=== PATIENT | male | born 1955 | race Caucasian/White ===

== ENCOUNTER 2020-08-25 13:48 | Inpatient (IN) | payer OTHER ==
[~2020-08-25] VITALS: Ht 167.6 cm; Wt 82.1 kg
--- NOTE | 2020-08-25 14:16 | NUR ---
PATIENT TRANSFERRED FROM [facility] BY YANETH WITH CHIEF C/O COIVD +. PER EMS PATIENT UNABLE TO KEEP O2 SATURATION ABOVE 84%. PATIENT PLACED ON 4 LPM NC EN ROUTE. NADN, PATIENT'S O2 SATURATION GOING BETWEEN 88%-90%, O2 INCREASED TO 5 LPM NC, OTHER VITAL SIGNS STABLE. GUARD AT BEDSIDE, CALL LIGHT WITHIN REACH.
[2020-08-25] MEDS ORDERED: CEFTRIAXONE PMX 1GM/50ML 50 ML ONE (14:47)
[2020-08-25] MEDS ORDERED: AZITHROMYCIN 500 MG in SODIUM CHLORIDE 0.9% 250 ML IVPB ONE (15:00)
[2020-08-25] MEDS ORDERED: CEFTRIAXONE PMX 1GM/50ML 50 ML IVPB ONE (15:00)
[2020-08-25] MEDS ORDERED: SODIUM CHLORIDE FLUSH 10ML SYR IVF ONE (15:00)
[2020-08-25 15:38] LABS: BASOPHILS % (AUTO) 0 % (0-1); EOSINOPHILS % (AUTO) 0 % (1-7); LYMPHOCYTES % (AUTO) 5 % (22-44); MEAN CORPUSCULAR HGB CONC 34.5 g/dL (33.2-36.2); MEAN PLATELET VOLUME 9.7 fL (7.4-10.4); MONOCYTES % (AUTO) 6 % (2-9); NEUTROPHILS % (AUTO) 89 % (42-75); PLATELET COUNT 277 x10^3/uL (130-400); RED BLOOD COUNT 4.66 x10^6/uL (4.38-5.82); RED CELL DISTRIBUTION WIDTH 12.9 % (9.4-14.8)
[2020-08-25 15:40] LABS: MD NO
[2020-08-25 15:49] LABS: ALANINE AMINOTRANSFERASE 89 U/L (12-78); ALBUMIN 2.9 g/dL (3.4-5.0); ANION GAP 9 mmol/L (5-15); CALCIUM 9.5 mg/dL (8.5-10.1); CHLORIDE 100 mmol/L (98-107)
[2020-08-25 15:56] LABS: D-DIMER (DIC) 3.12 ug/mlFEU (0.00-0.52); PROTIME 10.6 Seconds (9.6-11.5)
[2020-08-25 15:58] LABS: ALKALINE PHOSPHATASE 68 U/L (45-117); BILIRUBIN,TOTAL 0.8 mg/dL (0.2-1.0); C-REACTIVE PROTEIN, QUANT 2.67 mg/dL (0.02-0.49); CREATININE 1.48 mg/dL (0.7-1.3); TOTAL PROTEIN 8.1 g/dL (6.4-8.2)
[2020-08-25] MEDS ORDERED: SODIUM CHLORIDE FLUSH 10ML SYR IVF PRN (16:30)
--- NOTE | 2020-08-25 16:37 | NUR ---
DINNER TRAY ORDERED.
--- NOTE | 2020-08-25 16:51 | NUR ---
SM AT BEDSIDE FOR ADMISSION EVALUATION.
--- NOTE | 2020-08-25 16:52 | NUR ---
UNABLE TO GET PATIENT ABOVE 88% ON 6 LPM VIA NC. SWITCHED PATIENT TO SIMPLE O2 MASK 6 LPM, PATIENT NOW UP TO 91%.
--- NOTE | 2020-08-25 16:55 | NUR ---
PATIENT TO CT SCAN.
--- NOTE | 2020-08-25 17:10 | NUR ---
Medications requested from pharmacy.
[2020-08-25] MEDS ORDERED: OMNIPAQUE 350 MG/ML, 100ML BOTTLE ONE (17:12)
--- NOTE | 2020-08-25 17:15 | NUR ---
PATIENT BACK FROM IMAGING, DINNER TRAY PROVIDED. YG, GUARD AT BEDSIDE, CALL LIGHT WITHIN REACH.
[2020-08-25] MEDS ORDERED: ASCORBIC ACID 500 MG TABLET ONE (17:18)
--- NOTE | 2020-08-25 17:27 | NUR ---
PATIENT AMBULATED TO BATHROOM WITH STEADY GAIT, GUARD AT SIDE.
[2020-08-25] MEDS ORDERED: BUTALB/APAP/CAFFEINE 50MG/325MG/40MG PO PRN (17:30)
[2020-08-25] MEDS ORDERED: ENALAPRILAT 1.25 MG/ML, 2ML IVPush PRN (17:30)
[2020-08-25] MEDS ORDERED: LABETALOL 5MG/ML, 20ML IVPush PRN (17:30)
[2020-08-25] MEDS ORDERED: BACLOFEN 10 MG TABLET PO PRN (17:30)
[2020-08-25] MEDS ORDERED: IBUPROFEN 600 MG TABLET PO PRN (17:30)
[2020-08-25] MEDS ORDERED: ONDANSETRON ODT 4 MG PO PRN (17:30)
[2020-08-25] MEDS ORDERED: ONDANSETRON 2MG/ML, 2ML IVPush PRN (17:30)
[2020-08-25] MEDS: ASCORBIC ACID 500 MG TABLET PO SCH (18:13)
--- NOTE | 2020-08-25 18:49 | NUR ---
PATIENT DROPPING TO 87% TO 88% ON 6 LPM OXYMASK, BREAK RN PLACED PATIENT ON NON-REBREATHER, O2 SATURATION UP TO 89%-90%, NADN, GUARD AT BEDSIDE, CALL LIGHT WITHIN REACH.
[2020-08-25] MEDS: ENOXAPARIN 30 MG/0.3 ML SQ SCH (19:12)
[2020-08-25] MEDS: INSULIN LISPRO 100 UNITS/ML, PEN SQ-INSULIN SCH ×2 (19:12→21:00)
--- NOTE | 2020-08-25 19:53 | NUR ---
PATIENT SITTING IN GURNEY WATCHING TV, NADN, VSS, O2 IS 92% ON 10 LITERS NON-REBREATHER, GUARD AT BEDSIDE, CALL LIGHT WITHIN REACH.
--- NOTE | 2020-08-25 21:34 | NUR ---
REPORT CALLED TO [facility] ON [facility] TELEMETRY FLOOR FOR TRANSFER OF PATIENT CARE.
--- NOTE | 2020-08-25 21:55 | NUR ---
PATIENT TRANSFERRED TO [facility] TELEMETRY FLOOR VIA GURNEY WITH INJECTION MOLDER AND GUARD AT BEDSIDE. ALL PATIENT BELONGINGS GATHERED AND TAKEN TO FLOOR WITH PATIENT.
[2020-08-25 22:13] VITALS: BP 134/71
[2020-08-25] MEDS: MELATONIN 5 MG TABLET PO SCH (22:41)
[2020-08-26 02:16] VITALS: BP 115/76
[2020-08-26 04:05] LABS: ALANINE AMINOTRANSFERASE 84 U/L (12-78); ALBUMIN 2.6 g/dL (3.4-5.0); ANION GAP 8 mmol/L (5-15); CALCIUM 9.2 mg/dL (8.5-10.1); CHLORIDE 109 mmol/L (98-107)
[2020-08-26 04:08] LABS: ALKALINE PHOSPHATASE 62 U/L (45-117); BILIRUBIN,TOTAL 0.6 mg/dL (0.2-1.0); CREATININE 1.19 mg/dL (0.7-1.3); TOTAL PROTEIN 7.3 g/dL (6.4-8.2)
[2020-08-26 04:20] LABS: BASOPHILS % (AUTO) 0 % (0-1); EOSINOPHILS % (AUTO) 0 % (1-7); LYMPHOCYTES % (AUTO) 7 % (22-44); MEAN CORPUSCULAR HEMOGLOBIN 33.2 pg (27.5-34.5); MEAN CORPUSCULAR HGB CONC 34.9 g/dL (33.2-36.2); MEAN PLATELET VOLUME 9.5 fL (7.4-10.4); MONOCYTES % (AUTO) 4 % (2-9); NEUTROPHILS % (AUTO) 88 % (42-75); PLATELET COUNT 268 x10^3/uL (130-400); RED BLOOD COUNT 4.39 x10^6/uL (4.38-5.82); RED CELL DISTRIBUTION WIDTH 13.1 % (9.4-14.8)
[2020-08-26 04:23] LABS: MD NO
[2020-08-26] MEDS: ENOXAPARIN 30 MG/0.3 ML SQ SCH (08:26)
[2020-08-26] MEDS: INSULIN LISPRO 100 UNITS/ML, PEN SQ-INSULIN SCH ×4 (08:39→20:31)
[2020-08-26] MEDS: MULTIVITS,STRESS FORMULA 1 TABLET PO SCH (09:00)
[2020-08-26] MEDS ORDERED: DEXAMETHASONE 4 MG TABLET PO SCH (09:00)
[2020-08-26] MEDS: ASCORBIC ACID 500 MG TABLET PO SCH ×2 (10:23→17:03)
[2020-08-26] MEDS: SENNA/DOCUSATE TABLET PO SCH (10:23)
[2020-08-26] MEDS: ZINC SULFATE 220 MG CAPSULE PO SCH (10:24)
[2020-08-26] MEDS: CHOLECALCIFEROL 5,000u TAB PO SCH (10:24)
[2020-08-26] MEDS: FLUTICASONE/VILANTEROL 100-25MCG/INH INH SCH (12:24)
[2020-08-26] MEDS ORDERED: PHARMACY INSTRUCTION MC PRN (14:00)
[2020-08-26] MEDS ORDERED: REMDESIVIR 200 MG in SODIUM CHLORIDE 0.9% 250 ML IVPB ONE (15:00)
[2020-08-26] MEDS: THIAMINE 100 MG in SODIUM CHLORIDE 0.9% 50 ML IV SCH (15:02)
[2020-08-26] MEDS: AZITHROMYCIN 500 MG in SODIUM CHLORIDE 0.9% 250 ML IV SCH (18:13)
[2020-08-26] MEDS: ENOXAPARIN 80 MG/0.8 ML SQ SCH (20:23)
[2020-08-26] MEDS: MELATONIN 5 MG TABLET PO SCH (20:31)
[2020-08-27 04:00] VITALS: BP 110/78
[2020-08-27 05:00] LABS: MEAN CORPUSCULAR HEMOGLOBIN 33.1 pg (27.5-34.5); MEAN CORPUSCULAR HGB CONC 34.4 g/dL (33.2-36.2); MEAN PLATELET VOLUME 9.7 fL (7.4-10.4); PLATELET COUNT 264 x10^3/uL (130-400); RED BLOOD COUNT 4.36 x10^6/uL (4.38-5.82); RED CELL DISTRIBUTION WIDTH 13.4 % (9.4-14.8)
[2020-08-27 05:05] LABS: ALANINE AMINOTRANSFERASE 80 U/L (12-78); ALBUMIN 2.7 g/dL (3.4-5.0); ANION GAP 6 mmol/L (5-15); CALCIUM 9.1 mg/dL (8.5-10.1); CHLORIDE 109 mmol/L (98-107)
[2020-08-27 05:07] LABS: ALKALINE PHOSPHATASE 63 U/L (45-117); BILIRUBIN,TOTAL 0.8 mg/dL (0.2-1.0); TOTAL PROTEIN 7.4 g/dL (6.4-8.2)
[2020-08-27 06:39] LABS: MD YES
[2020-08-27 06:52] LABS: BAND#(MANUAL) 0.32 x10^3/uL; BANDS%(MANUAL) 3 % (0-7); LYMPH#(MANUAL) 0.42 x10^3/uL (1-3.4); LYMPHS% (MANUAL) 4 % (22-44); METAMYELOCYTES# (MANUAL) 0.32 x10^3/uL (0-0); METAMYELOCYTES% (MANUAL) 3 % (0-1); MONOS#(MANUAL) 0.32 x10^3/uL (0.3-2.7); MONOS% (MANUAL) 3 % (2-9); SEG#(MANUAL) 9.22 x10^3/uL (1.8-6.8); SEGS% (MANUAL) 87 % (42-75)
[2020-08-27 06:53] LABS: <PLATELET ESTIMATE> ADEQUATE; <PLT MORPHOLOGY> NORMAL PLT MORPH; <RBC MORPHOLOGY> NORMAL
[2020-08-27] MEDS: INSULIN LISPRO 100 UNITS/ML, PEN SQ-INSULIN SCH ×4 (07:00→19:23)
[2020-08-27] MEDS: CHOLECALCIFEROL 5,000u TAB PO SCH (09:00)
[2020-08-27] MEDS: MULTIVITS,STRESS FORMULA 1 TABLET PO SCH (09:00)
[2020-08-27] MEDS: ZINC SULFATE 220 MG CAPSULE PO SCH (09:00)
[2020-08-27] MEDS ORDERED: DEXAMETHASONE 4 MG/ML, 1ML IVPush ONE (09:00)
[2020-08-27] MEDS: DEXAMETHASONE 4 MG/ML, 1ML IVPush SCH (09:00)
[2020-08-27] MEDS: ASCORBIC ACID 500 MG TABLET PO SCH ×2 (09:01→17:20)
[2020-08-27] MEDS: ENOXAPARIN 80 MG/0.8 ML SQ SCH ×2 (09:01→19:22)
[2020-08-27] MEDS: SENNA/DOCUSATE TABLET PO SCH (09:01)
[2020-08-27] MEDS: FLUTICASONE/VILANTEROL 100-25MCG/INH INH SCH (09:02)
[2020-08-27] MEDS ORDERED: FUROSEMIDE 40 MG/4 ML IV ONE (10:00)
[2020-08-27] MEDS: THIAMINE 100 MG in SODIUM CHLORIDE 0.9% 50 ML IV SCH (14:28)
[2020-08-27] MEDS: REMDESIVIR 100 MG in SODIUM CHLORIDE 0.9% 250 ML IVPB SCH (15:37)
[2020-08-27] MEDS: AZITHROMYCIN 500 MG in SODIUM CHLORIDE 0.9% 250 ML IV SCH (17:21)
[2020-08-27] MEDS: MELATONIN 5 MG TABLET PO SCH (19:22)
[2020-08-27 19:26] VITALS: BP 114/74
[2020-08-28 02:00] VITALS: BP 113/77
[2020-08-28 06:43] LABS: BASOPHILS % (AUTO) 1 % (0-1); EOSINOPHILS % (AUTO) 1 % (1-7); LYMPHOCYTES % (AUTO) 6 % (22-44); MEAN CORPUSCULAR HGB CONC 34.2 g/dL (33.2-36.2); MEAN PLATELET VOLUME 9.2 fL (7.4-10.4); MONOCYTES % (AUTO) 4 % (2-9); NEUTROPHILS % (AUTO) 89 % (42-75); PLATELET COUNT 276 x10^3/uL (130-400); RED BLOOD COUNT 4.09 x10^6/uL (4.38-5.82); RED CELL DISTRIBUTION WIDTH 13.2 % (9.4-14.8)
[2020-08-28 06:55] LABS: ANION GAP 9 mmol/L (5-15); CHLORIDE 110 mmol/L (98-107)
[2020-08-28 06:57] LABS: CREATININE 1.12 mg/dL (0.7-1.3)
[2020-08-28 07:01] VITALS: BP 116/76
[2020-08-28 07:17] LABS: D-DIMER 2.16 ug/mlFEU (0.00-0.52)
[2020-08-28] MEDS: ENOXAPARIN 80 MG/0.8 ML SQ SCH ×2 (07:54→20:37)
[2020-08-28] MEDS: ASCORBIC ACID 500 MG TABLET PO SCH ×2 (07:54→16:43)
[2020-08-28] MEDS: INSULIN LISPRO 100 UNITS/ML, PEN SQ-INSULIN SCH ×4 (07:55→20:27)
[2020-08-28 08:14] LABS: MD SCAN
[2020-08-28] MEDS: ZINC SULFATE 220 MG CAPSULE PO SCH (09:26)
[2020-08-28] MEDS: MULTIVITS,STRESS FORMULA 1 TABLET PO SCH (09:26)
[2020-08-28] MEDS: SENNA/DOCUSATE TABLET PO SCH (09:26)
[2020-08-28] MEDS: DEXAMETHASONE 4 MG/ML, 1ML IVPush SCH (09:26)
[2020-08-28] MEDS: CHOLECALCIFEROL 5,000u TAB PO SCH (09:26)
[2020-08-28] MEDS: FLUTICASONE/VILANTEROL 100-25MCG/INH INH SCH (09:29)
[2020-08-28 13:52] VITALS: BP 111/75
[2020-08-28] MEDS: THIAMINE 100 MG in SODIUM CHLORIDE 0.9% 50 ML IV SCH (15:54)
[2020-08-28] MEDS: REMDESIVIR 100 MG in SODIUM CHLORIDE 0.9% 250 ML IVPB SCH (16:43)
[2020-08-28] MEDS: AZITHROMYCIN 500 MG in SODIUM CHLORIDE 0.9% 250 ML IV SCH ×2 (18:38→19:08)
[2020-08-28 20:00] VITALS: BP 104/65
[2020-08-28] MEDS: MELATONIN 5 MG TABLET PO SCH (20:27)
[2020-08-29 00:55] VITALS: BP 135/77
[2020-08-29 06:04] LABS: BASOPHILS % (AUTO) 0 % (0-1); EOSINOPHILS % (AUTO) 1 % (1-7); LYMPHOCYTES % (AUTO) 6 % (22-44); MEAN CORPUSCULAR HEMOGLOBIN 33.1 pg (27.5-34.5); MEAN PLATELET VOLUME 9.4 fL (7.4-10.4); MONOCYTES % (AUTO) 3 % (2-9); NEUTROPHILS % (AUTO) 90 % (42-75); PLATELET COUNT 247 x10^3/uL (130-400); RED BLOOD COUNT 4.05 x10^6/uL (4.38-5.82); RED CELL DISTRIBUTION WIDTH 13.1 % (9.4-14.8)
[2020-08-29 06:12] LABS: ALANINE AMINOTRANSFERASE 72 U/L (12-78); ALBUMIN 2.5 g/dL (3.4-5.0); ANION GAP 4 mmol/L (5-15); CALCIUM 8.3 mg/dL (8.5-10.1); CHLORIDE 112 mmol/L (98-107)
[2020-08-29 06:15] LABS: ALKALINE PHOSPHATASE 74 U/L (45-117); BILIRUBIN,TOTAL 0.8 mg/dL (0.2-1.0); TOTAL PROTEIN 6.7 g/dL (6.4-8.2)
[2020-08-29 06:16] LABS: D-DIMER 1.85 ug/mlFEU (0.00-0.52); INTERNATIONAL NORMALIZED RATIO 1.14 (0.93-1.1); PROTHROMBIN TIME 12.1 Seconds (9.6-11.5)
[2020-08-29 06:55] VITALS: BP 103/70
[2020-08-29] MEDS: INSULIN LISPRO 100 UNITS/ML, PEN SQ-INSULIN SCH ×4 (07:00→20:12)
[2020-08-29] MEDS: ENOXAPARIN 80 MG/0.8 ML SQ SCH ×2 (08:00→19:56)
[2020-08-29 08:18] LABS: MD SCAN
[2020-08-29] MEDS: DEXAMETHASONE 4 MG/ML, 1ML IVPush SCH (09:33)
[2020-08-29] MEDS: MULTIVITS,STRESS FORMULA 1 TABLET PO SCH (09:33)
[2020-08-29] MEDS: ZINC SULFATE 220 MG CAPSULE PO SCH (09:33)
[2020-08-29] MEDS: ASCORBIC ACID 500 MG TABLET PO SCH ×2 (09:33→17:25)
[2020-08-29] MEDS: CHOLECALCIFEROL 5,000u TAB PO SCH (09:33)
[2020-08-29] MEDS: SENNA/DOCUSATE TABLET PO SCH (09:33)
[2020-08-29] MEDS: FLUTICASONE/VILANTEROL 100-25MCG/INH INH SCH (09:34)
[2020-08-29] MEDS: THIAMINE 100 MG in SODIUM CHLORIDE 0.9% 50 ML IV SCH (13:04)
[2020-08-29 13:55] VITALS: BP 106/68
[2020-08-29] MEDS: REMDESIVIR 100 MG in SODIUM CHLORIDE 0.9% 250 ML IVPB SCH (15:21)
[2020-08-29] MEDS: AZITHROMYCIN 500 MG in SODIUM CHLORIDE 0.9% 250 ML IV SCH (17:25)
[2020-08-29 18:35] VITALS: BP 132/79
[2020-08-29] MEDS: MELATONIN 5 MG TABLET PO SCH (19:56)
[2020-08-30 01:00] VITALS: BP 104/69
[2020-08-30 01:30] VITALS: BP 112/69
[2020-08-30 05:39] LABS: CALCIUM 8.4 mg/dL (8.5-10.1); CHLORIDE 112 mmol/L (98-107)
[2020-08-30 05:45] LABS: ALANINE AMINOTRANSFERASE 67 U/L (12-78); ALBUMIN 2.2 g/dL (3.4-5.0); ALKALINE PHOSPHATASE 82 U/L (45-117); ANION GAP 6 mmol/L (5-15); BILIRUBIN,TOTAL 0.7 mg/dL (0.2-1.0); CREATININE 0.94 mg/dL (0.7-1.3); TOTAL PROTEIN 6.4 g/dL (6.4-8.2)
[2020-08-30 07:14] VITALS: BP 143/93
[2020-08-30] MEDS: INSULIN LISPRO 100 UNITS/ML, PEN SQ-INSULIN SCH ×4 (08:10→20:18)
[2020-08-30] MEDS: ZINC SULFATE 220 MG CAPSULE PO SCH (09:18)
[2020-08-30] MEDS: MULTIVITS,STRESS FORMULA 1 TABLET PO SCH (09:18)
[2020-08-30] MEDS: CHOLECALCIFEROL 5,000u TAB PO SCH (09:18)
[2020-08-30] MEDS: DEXAMETHASONE 4 MG/ML, 1ML IVPush SCH (09:19)
[2020-08-30] MEDS: ENOXAPARIN 80 MG/0.8 ML SQ SCH (09:19)
[2020-08-30] MEDS: SENNA/DOCUSATE TABLET PO SCH (09:20)
[2020-08-30] MEDS: FLUTICASONE/VILANTEROL 100-25MCG/INH INH SCH (09:20)
[2020-08-30] MEDS: ASCORBIC ACID 500 MG TABLET PO SCH ×2 (11:49→17:06)
[2020-08-30 13:17] VITALS: BP 114/71
[2020-08-30] MEDS: THIAMINE 100 MG in SODIUM CHLORIDE 0.9% 50 ML IV SCH (13:49)
[2020-08-30] MEDS: REMDESIVIR 100 MG in SODIUM CHLORIDE 0.9% 250 ML IVPB SCH (15:06)
[2020-08-30 18:48] VITALS: BP 120/80
[2020-08-30] MEDS: MELATONIN 5 MG TABLET PO SCH (20:16)
[2020-08-30] MEDS: GUAIFENESIN ER 600 MG TABLET PO SCH (20:16)
[2020-08-31 01:33] VITALS: BP 112/70
[2020-08-31 06:33] VITALS: BP 124/84
[2020-08-31] MEDS: INSULIN LISPRO 100 UNITS/ML, PEN SQ-INSULIN SCH ×3 (07:00→22:40)
[2020-08-31] MEDS: CHOLECALCIFEROL 5,000u TAB PO SCH (07:49)
[2020-08-31] MEDS: MULTIVITS,STRESS FORMULA 1 TABLET PO SCH (07:49)
[2020-08-31] MEDS: ASCORBIC ACID 500 MG TABLET PO SCH ×2 (07:49→18:20)
[2020-08-31] MEDS: ZINC SULFATE 220 MG CAPSULE PO SCH (07:49)
[2020-08-31] MEDS: ENOXAPARIN 60 MG/0.6 ML SQ SCH (07:49)
[2020-08-31] MEDS: GUAIFENESIN ER 600 MG TABLET PO SCH ×2 (07:49→22:41)
[2020-08-31] MEDS: FLUTICASONE/VILANTEROL 100-25MCG/INH INH SCH (07:50)
[2020-08-31] MEDS: DEXAMETHASONE 4 MG/ML, 1ML IVPush SCH (07:50)
[2020-08-31] MEDS: SENNA/DOCUSATE TABLET PO SCH (07:57)
[2020-08-31 14:26] VITALS: BP 115/76
[2020-08-31] MEDS: THIAMINE 100 MG in SODIUM CHLORIDE 0.9% 50 ML IV SCH (14:38)
[2020-08-31 18:50] VITALS: BP 125/75
[2020-08-31] MEDS: MELATONIN 5 MG TABLET PO SCH (22:41)
[2020-09-01 00:54] VITALS: BP 134/85
[2020-09-01 01:22] VITALS: BP 112/78
[2020-09-01 07:02] VITALS: BP 109/73
[2020-09-01] MEDS ORDERED: INSULIN GLARGINE 100 UNITS/ML, PEN SQ-INSULIN SCH ×2 (09:00)
[2020-09-01] MEDS: MULTIVITS,STRESS FORMULA 1 TABLET PO SCH (09:46)
[2020-09-01] MEDS: ENOXAPARIN 60 MG/0.6 ML SQ SCH (09:46)
[2020-09-01] MEDS: INSULIN LISPRO 100 UNITS/ML, PEN SQ-INSULIN SCH ×4 (09:46→20:34)
[2020-09-01] MEDS: CHOLECALCIFEROL 5,000u TAB PO SCH (09:47)
[2020-09-01] MEDS: GUAIFENESIN ER 600 MG TABLET PO SCH ×2 (09:47→19:45)
[2020-09-01] MEDS: ASCORBIC ACID 500 MG TABLET PO SCH ×2 (09:47→17:00)
[2020-09-01] MEDS: ACETAMINOPHEN 325 MG TABLET PO PRN (09:47)
[2020-09-01] MEDS: DEXAMETHASONE 4 MG/ML, 1ML IVPush SCH (09:48)
[2020-09-01] MEDS: FLUTICASONE/VILANTEROL 100-25MCG/INH INH SCH (09:48)
[2020-09-01] MEDS: ZINC SULFATE 220 MG CAPSULE PO SCH (09:48)
[2020-09-01] MEDS: SENNA/DOCUSATE TABLET PO SCH (10:00)
[2020-09-01] MEDS ORDERED: HYDROmorphone 1 MG/ML, 1ML INJ IV PRN (12:30)
[2020-09-01] MEDS ORDERED: HEPARIN 5,000 UNITS/ML, 1ML IV PRN (13:00)
[2020-09-01] MEDS ORDERED: INSTRUCTION SEE COMMENTS XX ONE (13:00)
[2020-09-01] MEDS ORDERED: HEPARIN 25,000 UNITS/250ML PMX 250 ML IV PRN (13:00)
[2020-09-01] MEDS ORDERED: THROMBIN 20,000 UNIT VIAL TP ONE (13:49)
[2020-09-01] MEDS ORDERED: PROTAMINE SULFATE 10 MG/ML, 5ML ONE (13:49)
[2020-09-01] MEDS ORDERED: BUPIVACAINE/PF 0.5% ONE (13:49)
[2020-09-01] MEDS ORDERED: HEPARIN 1,000 UNITS/ML, 10ML ONE (13:49)
[2020-09-01] MEDS ORDERED: BACITRACIN 50,000 UNIT ONE (13:49)
[2020-09-01] MEDS ORDERED: EPINEPHRINE 1 MG/ML, 1ML ONE (13:49)
[2020-09-01] MEDS ORDERED: PAPAVERINE 30 MG/ML, 2ML ONE (13:49)
[2020-09-01] MEDS ORDERED: FENTANYL PF 250 MCG/5ML ONE (14:00)
[2020-09-01] MEDS ORDERED: ROCURONIUM 10 MG/ML,10ML ONE (14:38)
[2020-09-01] MEDS ORDERED: DEXAMETHASONE 4 MG/ML, 1ML ONE (14:38)
[2020-09-01] MEDS ORDERED: CEFAZOLIN 1,000 MG ONE (14:38)
[2020-09-01] MEDS ORDERED: PROPOFOL 10 MG/ML, 20ML ONE (14:38)
[2020-09-01] MEDS ORDERED: SUCCINYLCHOLINE 20 MG/ML, 10ML ONE (14:38)
[2020-09-01] MEDS ORDERED: BUPIVACAINE/PF 0.5% INFIL ONE (15:18)
[2020-09-01] MEDS ORDERED: HEPARIN 1,000 UNITS/ML, 10ML IV ONE (15:19)
[2020-09-01] MEDS ORDERED: PROPOFOL 100 ML IV ONE (16:37)
[2020-09-01] MEDS ORDERED: DEXTROSE 4 GM TAB.CHEW PO PRN (17:30)
[2020-09-01] MEDS ORDERED: LIDOCAINE-MPF 1%, 2ML ENDO PRN (17:30)
[2020-09-01] MEDS ORDERED: GLUCAGON 1 MG IM PRN (17:30)
[2020-09-01] MEDS ORDERED: ONDANSETRON 2MG/ML, 2ML IV PRN (17:30)
[2020-09-01] MEDS ORDERED: FENTANYL PF 1,000 MCG in SODIUM CHLORIDE 0.9% 80 ML IV PRN (17:30)
[2020-09-01] MEDS ORDERED: DEXTROSE 50%, 50ML SYRINGE IVPush PRN (17:30)
[2020-09-01] MEDS ORDERED: LACTULOSE 20 GM/30 ML UDC NG PRN (17:30)
[2020-09-01] MEDS ORDERED: SENNA/DOCUSATE TABLET NG PRN (17:30)
[2020-09-01] MEDS ORDERED: BISACODYL 10 MG SUPP PR PRN (17:30)
[2020-09-01] MEDS ORDERED: PHARMACY MAY ADJ FOR RENAL FX MC SCH (17:30)
[2020-09-01] MEDS: THIAMINE 100 MG in SODIUM CHLORIDE 0.9% 50 ML IV SCH (18:01)
[2020-09-01] MEDS: SODIUM CHLORIDE FLUSH 10ML SYR IVF SCH (21:02)
[2020-09-01] MEDS: PROPOFOL 100 ML IV PRN (21:02)
[2020-09-01] MEDS: MELATONIN 5 MG TABLET PO SCH (21:52)
[2020-09-02 03:10] LABS: BASOPHILS % (AUTO) 0 % (0-1); EOSINOPHILS % (AUTO) 0 % (1-7); LYMPHOCYTES % (AUTO) 5 % (22-44); MEAN CORPUSCULAR HGB CONC 34.3 g/dL (33.2-36.2); MEAN PLATELET VOLUME 9.5 fL (7.4-10.4); MONOCYTES % (AUTO) 3 % (2-9); NEUTROPHILS % (AUTO) 92 % (42-75); PLATELET COUNT 182 x10^3/uL (130-400); RED BLOOD COUNT 3.44 x10^6/uL (4.38-5.82); RED CELL DISTRIBUTION WIDTH 13.3 % (9.4-14.8)
[2020-09-02 03:11] LABS: ANION GAP 5 mmol/L (5-15); CALCIUM 8.3 mg/dL (8.5-10.1); CHLORIDE 113 mmol/L (98-107); CREATININE 0.98 mg/dL (0.7-1.3)
[2020-09-02] MEDS: PROPOFOL 100 ML IV PRN ×4 (03:35→20:55)
[2020-09-02] MEDS: INSULIN LISPRO 100 UNITS/ML, PEN SQ-INSULIN SCH ×4 (03:36→20:36)
[2020-09-02 03:37] LABS: MD SCAN
[2020-09-02 07:54] LABS: BILIRUBIN, DIRECT 0.1 mg/dL (0.1-0.2)
[2020-09-02 07:55] LABS: BILIRUBIN,INDIRECT 0.2 mg/dL (0.0-2.0); BILIRUBIN,TOTAL 0.3 mg/dL (0.2-1.0)
[2020-09-02] MEDS: FLUTICASONE/VILANTEROL 100-25MCG/INH INH SCH (09:00)
[2020-09-02] MEDS: INSULIN GLARGINE 100 UNITS/ML, PEN SQ-INSULIN SCH ×2 (09:00→20:36)
[2020-09-02] MEDS ORDERED: HEPARIN 5,000 UNITS/ML, 1ML IV PRN (09:38)
[2020-09-02] MEDS: GUAIFENESIN ER 600 MG TABLET PO SCH ×2 (09:50→20:37)
[2020-09-02] MEDS: SENNA/DOCUSATE TABLET PO SCH (09:50)
[2020-09-02] MEDS: CHOLECALCIFEROL 5,000u TAB PO SCH (09:50)
[2020-09-02] MEDS: ASCORBIC ACID 500 MG TABLET PO SCH ×2 (09:50→15:11)
[2020-09-02] MEDS: ZINC SULFATE 220 MG CAPSULE PO SCH (09:50)
[2020-09-02] MEDS: MULTIVITS,STRESS FORMULA 1 TABLET PO SCH (09:50)
[2020-09-02] MEDS: DEXAMETHASONE 4 MG/ML, 1ML IVPush SCH (09:51)
[2020-09-02] MEDS: SODIUM CHLORIDE FLUSH 10ML SYR IVF SCH ×2 (09:52→20:34)
[2020-09-02] MEDS ORDERED: HEPARIN 25,000 UNITS/250ML PMX 250 ML IV PRN (10:00)
[2020-09-02] MEDS ORDERED: PROPOFOL 50 ML ONE (10:42)
[2020-09-02] MEDS: RIVAROXABAN 15 MG TABLET PO SCH (15:11)
[2020-09-02] MEDS: MELATONIN 5 MG TABLET PO SCH (20:37)
[2020-09-03] MEDS: INSULIN LISPRO 100 UNITS/ML, PEN SQ-INSULIN SCH ×4 (03:34→21:45)
[2020-09-03] MEDS: PROPOFOL 100 ML IV PRN ×3 (04:54→21:44)
[2020-09-03 05:29] LABS: ANION GAP 7 mmol/L (5-15); BASOPHILS % (AUTO) 0 % (0-1); CALCIUM 8.8 mg/dL (8.5-10.1); CHLORIDE 113 mmol/L (98-107); CREATININE 1.04 mg/dL (0.7-1.3); EOSINOPHILS % (AUTO) 0 % (1-7); LYMPHOCYTES % (AUTO) 6 % (22-44); MEAN CORPUSCULAR HEMOGLOBIN 32.7 pg (27.5-34.5); MEAN CORPUSCULAR HGB CONC 33.6 g/dL (33.2-36.2); MEAN PLATELET VOLUME 9.7 fL (7.4-10.4); MONOCYTES % (AUTO) 3 % (2-9); NEUTROPHILS % (AUTO) 91 % (42-75); PLATELET COUNT 169 x10^3/uL (130-400); RED BLOOD COUNT 3.56 x10^6/uL (4.38-5.82); RED CELL DISTRIBUTION WIDTH 13.5 % (9.4-14.8)
[2020-09-03 05:34] LABS: MD NO
[2020-09-03] MEDS: FLUTICASONE/VILANTEROL 100-25MCG/INH INH SCH (09:00)
[2020-09-03] MEDS: SODIUM CHLORIDE FLUSH 10ML SYR IVF SCH ×2 (09:02→21:43)
[2020-09-03] MEDS: GUAIFENESIN ER 600 MG TABLET PO SCH ×2 (09:03→21:43)
[2020-09-03] MEDS: CHOLECALCIFEROL 5,000u TAB PO SCH (09:03)
[2020-09-03] MEDS: DEXAMETHASONE 4 MG/ML, 1ML IVPush SCH (09:03)
[2020-09-03] MEDS: RIVAROXABAN 15 MG TABLET PO SCH ×2 (09:03→15:34)
[2020-09-03] MEDS: ASCORBIC ACID 500 MG TABLET PO SCH ×2 (09:03→15:34)
[2020-09-03] MEDS: SENNA/DOCUSATE TABLET PO SCH (09:03)
[2020-09-03] MEDS: ZINC SULFATE 220 MG CAPSULE PO SCH (09:03)
[2020-09-03] MEDS: MULTIVITS,STRESS FORMULA 1 TABLET PO SCH (09:03)
[2020-09-03] MEDS: INSULIN GLARGINE 100 UNITS/ML, PEN SQ-INSULIN SCH ×2 (09:05→21:44)
--- NOTE | 2020-09-03 09:47 | NUR ---
Tube feed: Vital AF: on propofol: 50 ml/hr, off propofol: 65 ml/hr Addendum: 09/03/20 at [address] Amended: Links added.
[2020-09-03] MEDS: MELATONIN 5 MG TABLET PO SCH (21:43)
[2020-09-04] MEDS: INSULIN LISPRO 100 UNITS/ML, PEN SQ-INSULIN SCH ×4 (03:00→20:16)
[2020-09-04] MEDS: PROPOFOL 100 ML IV PRN ×2 (03:31→16:45)
[2020-09-04 04:58] LABS: BASOPHILS % (AUTO) 1 % (0-1); EOSINOPHILS % (AUTO) 0 % (1-7); LYMPHOCYTES % (AUTO) 8 % (22-44); MEAN PLATELET VOLUME 9.7 fL (7.4-10.4); MONOCYTES % (AUTO) 4 % (2-9); NEUTROPHILS % (AUTO) 87 % (42-75); PLATELET COUNT 151 x10^3/uL (130-400); RED BLOOD COUNT 3.47 x10^6/uL (4.38-5.82); RED CELL DISTRIBUTION WIDTH 13.6 % (9.4-14.8)
[2020-09-04 05:08] LABS: ANION GAP 7 mmol/L (5-15); CALCIUM 8.8 mg/dL (8.5-10.1); CHLORIDE 110 mmol/L (98-107)
[2020-09-04 05:11] LABS: CREATININE 0.99 mg/dL (0.7-1.3); TRIGLYCERIDES 181 mg/dL (50-200)
[2020-09-04 05:43] LABS: MD SCAN
[2020-09-04] MEDS: RIVAROXABAN 15 MG TABLET PO SCH ×2 (07:38→16:45)
[2020-09-04] MEDS: FLUTICASONE/VILANTEROL 100-25MCG/INH INH SCH (08:11)
[2020-09-04] MEDS: GUAIFENESIN ER 600 MG TABLET PO SCH ×2 (08:11→20:14)
[2020-09-04] MEDS: MULTIVITS,STRESS FORMULA 1 TABLET PO SCH (08:21)
[2020-09-04] MEDS: ZINC SULFATE 220 MG CAPSULE PO SCH (08:21)
[2020-09-04] MEDS: CHOLECALCIFEROL 5,000u TAB PO SCH (08:21)
[2020-09-04] MEDS: SENNA/DOCUSATE TABLET PO SCH (08:21)
[2020-09-04] MEDS: FUROSEMIDE 40 MG/4 ML IV SCH (08:21)
[2020-09-04] MEDS: SODIUM CHLORIDE FLUSH 10ML SYR IVF SCH ×2 (08:22→20:18)
[2020-09-04] MEDS: ASCORBIC ACID 500 MG TABLET PO SCH (08:22)
[2020-09-04] MEDS: DEXAMETHASONE 4 MG/ML, 1ML IVPush SCH (08:22)
[2020-09-04] MEDS: INSULIN GLARGINE 100 UNITS/ML, PEN SQ-INSULIN SCH ×2 (08:25→20:17)
[2020-09-04] MEDS: MELATONIN 5 MG TABLET PO SCH (20:14)
[2020-09-04] MEDS ORDERED: PROPOFOL 50 ML IV PRN (21:30)
[2020-09-05] MEDS: PROPOFOL 100 ML IV PRN ×4 (01:14→23:12)
[2020-09-05 02:36] LABS: BASOPHILS % (AUTO) 1 % (0-1); EOSINOPHILS % (AUTO) 1 % (1-7); LYMPHOCYTES % (AUTO) 9 % (22-44); MEAN CORPUSCULAR HEMOGLOBIN 33.1 pg (27.5-34.5); MEAN CORPUSCULAR HGB CONC 34.4 g/dL (33.2-36.2); MEAN PLATELET VOLUME 10.1 fL (7.4-10.4); MONOCYTES % (AUTO) 5 % (2-9); NEUTROPHILS % (AUTO) 84 % (42-75); PLATELET COUNT 150 x10^3/uL (130-400); RED BLOOD COUNT 3.58 x10^6/uL (4.38-5.82); RED CELL DISTRIBUTION WIDTH 13.8 % (9.4-14.8)
[2020-09-05 02:38] LABS: MD NO
[2020-09-05 02:46] LABS: ANION GAP 6 mmol/L (5-15); CALCIUM 9.1 mg/dL (8.5-10.1); CHLORIDE 107 mmol/L (98-107); CREATININE 1.02 mg/dL (0.7-1.3)
[2020-09-05 02:47] LABS: BILIRUBIN,TOTAL 0.4 mg/dL (0.2-1.0)
[2020-09-05] MEDS: INSULIN LISPRO 100 UNITS/ML, PEN SQ-INSULIN SCH ×4 (03:18→21:06)
[2020-09-05] MEDS: FLUTICASONE/VILANTEROL 100-25MCG/INH INH SCH (09:00)
[2020-09-05] MEDS: MULTIVITS,STRESS FORMULA 1 TABLET PO SCH (09:09)
[2020-09-05] MEDS: DEXAMETHASONE 4 MG/ML, 1ML IVPush SCH (09:09)
[2020-09-05] MEDS: FUROSEMIDE 40 MG/4 ML IV SCH (09:09)
[2020-09-05] MEDS: RIVAROXABAN 15 MG TABLET PO SCH ×2 (09:09→17:12)
[2020-09-05] MEDS: SENNA/DOCUSATE TABLET PO SCH (09:09)
[2020-09-05] MEDS: GUAIFENESIN ER 600 MG TABLET PO SCH ×2 (09:10→21:04)
[2020-09-05] MEDS: SODIUM CHLORIDE FLUSH 10ML SYR IVF SCH ×2 (09:19→21:06)
[2020-09-05] MEDS: INSULIN GLARGINE 100 UNITS/ML, PEN SQ-INSULIN SCH ×2 (09:26→21:05)
[2020-09-05] MEDS ORDERED: HYDROmorphone 2 MG/ML, 1ML ONE (23:03)
[2020-09-06] MEDS ORDERED: HYDROmorphone 2 MG/ML, 1ML IV PRN (01:00)
[2020-09-06] MEDS: INSULIN LISPRO 100 UNITS/ML, PEN SQ-INSULIN SCH ×4 (02:58→19:54)
[2020-09-06 04:16] LABS: BASOPHILS % (AUTO) 0 % (0-1); EOSINOPHILS % (AUTO) 1 % (1-7); LYMPHOCYTES % (AUTO) 8 % (22-44); MEAN CORPUSCULAR HEMOGLOBIN 33.2 pg (27.5-34.5); MEAN PLATELET VOLUME 10.1 fL (7.4-10.4); MONOCYTES % (AUTO) 7 % (2-9); NEUTROPHILS % (AUTO) 85 % (42-75); PLATELET COUNT 143 x10^3/uL (130-400); RED CELL DISTRIBUTION WIDTH 13.7 % (9.4-14.8)
[2020-09-06 04:17] LABS: MD NO
[2020-09-06 04:29] LABS: CALCIUM 9.1 mg/dL (8.5-10.1); CHLORIDE 107 mmol/L (98-107)
[2020-09-06 04:34] LABS: ANION GAP 5 mmol/L (5-15); BILIRUBIN,TOTAL 0.5 mg/dL (0.2-1.0); CREATININE 1.11 mg/dL (0.7-1.3)
[2020-09-06] MEDS: PROPOFOL 100 ML IV PRN (04:47)
[2020-09-06] MEDS: MULTIVITS,STRESS FORMULA 1 TABLET PO SCH (09:15)
[2020-09-06] MEDS: GUAIFENESIN ER 600 MG TABLET PO SCH ×2 (09:16→19:53)
[2020-09-06] MEDS: SENNA/DOCUSATE TABLET PO SCH (09:16)
[2020-09-06] MEDS: FUROSEMIDE 40 MG/4 ML IV SCH (09:16)
[2020-09-06] MEDS: SODIUM CHLORIDE FLUSH 10ML SYR IVF SCH ×2 (09:17→19:53)
[2020-09-06] MEDS: INSULIN GLARGINE 100 UNITS/ML, PEN SQ-INSULIN SCH ×2 (09:33→19:55)
[2020-09-06] MEDS: RIVAROXABAN 15 MG TABLET PO SCH ×2 (09:34→17:29)
[2020-09-06] MEDS: DEXMEDETOMIDINE 400 MCG in SODIUM CHLORIDE 0.9% 96 ML IV PRN ×2 (11:27→20:57)
[2020-09-06] MEDS: ACETAMINOPHEN 325 MG TABLET PO PRN ×3 (12:11→21:51)
[2020-09-06] MEDS ORDERED: FUROSEMIDE 40 MG/4 ML IV ONE (17:00)
[2020-09-06] MEDS ORDERED: VANCOMYCIN PER PHARMACY MC PRN (17:30)
[2020-09-06] MEDS ORDERED: PHARMACOKINETIC MONITORING MC PRN (18:00)
[2020-09-06] MEDS ORDERED: VANCOMYCIN 1,800 MG in SODIUM CHLORIDE 0.9% 250 ML IV ONE (18:00)
[2020-09-06] MEDS: MEROPENEM 1 GM in SODIUM CHLORIDE 0.9% 100 ML IV SCH (18:06)
[2020-09-07] MEDS: MEROPENEM 1 GM in SODIUM CHLORIDE 0.9% 100 ML IV SCH ×3 (01:37→17:08)
[2020-09-07] MEDS: DEXMEDETOMIDINE 400 MCG in SODIUM CHLORIDE 0.9% 96 ML IV PRN ×2 (02:19→06:39)
[2020-09-07] MEDS: INSULIN LISPRO 100 UNITS/ML, PEN SQ-INSULIN SCH ×4 (03:00→19:44)
[2020-09-07 04:47] LABS: BASOPHILS % (AUTO) 0 % (0-1); EOSINOPHILS % (AUTO) 2 % (1-7); LYMPHOCYTES % (AUTO) 8 % (22-44); MEAN CORPUSCULAR HEMOGLOBIN 33.6 pg (27.5-34.5); MEAN CORPUSCULAR HGB CONC 34.4 g/dL (33.2-36.2); MEAN PLATELET VOLUME 10.3 fL (7.4-10.4); MONOCYTES % (AUTO) 6 % (2-9); NEUTROPHILS % (AUTO) 85 % (42-75); PLATELET COUNT 113 x10^3/uL (130-400); RED BLOOD COUNT 3.07 x10^6/uL (4.38-5.82); RED CELL DISTRIBUTION WIDTH 13.9 % (9.4-14.8)
[2020-09-07 05:02] LABS: CHLORIDE 108 mmol/L (98-107)
[2020-09-07 05:07] LABS: MD NO
[2020-09-07 05:09] LABS: ANION GAP 6 mmol/L (5-15); BILIRUBIN,TOTAL 0.6 mg/dL (0.2-1.0); CALCIUM 8.6 mg/dL (8.5-10.1); CREATININE 1.05 mg/dL (0.7-1.3); TRIGLYCERIDES 139 mg/dL (50-200)
[2020-09-07] MEDS: VANCOMYCIN 1,400 MG in SODIUM CHLORIDE 0.9% 250 ML IV SCH ×2 (06:17→18:14)
[2020-09-07] MEDS: SENNA/DOCUSATE TABLET PO SCH (09:00)
[2020-09-07] MEDS: FUROSEMIDE 40 MG/4 ML IV SCH (09:09)
[2020-09-07] MEDS: GUAIFENESIN ER 600 MG TABLET PO SCH ×2 (09:10→19:43)
[2020-09-07] MEDS: SENNA 176 MG/5 ML ORAL SOL NG PRN ×2 (09:10→09:23)
[2020-09-07] MEDS: MULTIVITS,STRESS FORMULA 1 TABLET PO SCH (09:10)
[2020-09-07] MEDS: SODIUM CHLORIDE FLUSH 10ML SYR IVF SCH ×2 (09:15→19:44)
[2020-09-07] MEDS: INSULIN GLARGINE 100 UNITS/ML, PEN SQ-INSULIN SCH ×2 (09:26→19:44)
[2020-09-07] MEDS: RIVAROXABAN 15 MG TABLET PO SCH ×2 (11:03→17:08)
[2020-09-07] MEDS: NOREPINEPHRINE 8 MG in SODIUM CHLORIDE 0.9% 242 ML IV PRN (12:52)
[2020-09-08] MEDS: MEROPENEM 1 GM in SODIUM CHLORIDE 0.9% 100 ML IV SCH ×3 (00:23→21:48)
[2020-09-08] MEDS: INSULIN LISPRO 100 UNITS/ML, PEN SQ-INSULIN SCH ×4 (03:00→21:55)
[2020-09-08 04:58] LABS: ANION GAP 7 mmol/L (5-15); CALCIUM 8.8 mg/dL (8.5-10.1); CHLORIDE 107 mmol/L (98-107)
[2020-09-08 05:00] LABS: BASOPHILS % (AUTO) 1 % (0-1); BILIRUBIN,TOTAL 0.7 mg/dL (0.2-1.0); EOSINOPHILS % (AUTO) 3 % (1-7); LYMPHOCYTES % (AUTO) 9 % (22-44); MEAN CORPUSCULAR HGB CONC 33.9 g/dL (33.2-36.2); MEAN PLATELET VOLUME 10.6 fL (7.4-10.4); MONOCYTES % (AUTO) 7 % (2-9); NEUTROPHILS % (AUTO) 81 % (42-75); PLATELET COUNT 155 x10^3/uL (130-400); RED BLOOD COUNT 3.48 x10^6/uL (4.38-5.82); RED CELL DISTRIBUTION WIDTH 14.3 % (9.4-14.8)
[2020-09-08 05:21] LABS: MD NO
[2020-09-08] MEDS: VANCOMYCIN 1,400 MG in SODIUM CHLORIDE 0.9% 250 ML IV SCH ×3 (05:59→17:20)
[2020-09-08] MEDS: SODIUM CHLORIDE FLUSH 10ML SYR IVF SCH ×2 (09:00→21:27)
[2020-09-08] MEDS: SENNA/DOCUSATE TABLET PO SCH (09:06)
[2020-09-08] MEDS: GUAIFENESIN ER 600 MG TABLET PO SCH ×2 (09:07→21:28)
[2020-09-08] MEDS: POTASSIUM CHLORIDE 10% 40 MEQ/30 ML UDC PO SCH ×2 (09:07→21:28)
[2020-09-08] MEDS: MULTIVITS,STRESS FORMULA 1 TABLET PO SCH (09:07)
[2020-09-08] MEDS: RIVAROXABAN 15 MG TABLET PO SCH ×2 (09:07→16:16)
[2020-09-08] MEDS: FUROSEMIDE 40 MG/4 ML IV SCH (09:08)
[2020-09-08] MEDS: INSULIN GLARGINE 100 UNITS/ML, PEN SQ-INSULIN SCH ×2 (09:18→21:55)
[2020-09-08] MEDS: TAMSULOSIN 0.4 MG CAP.ER.24H PO SCH (12:21)
[2020-09-08] MEDS: ACETAMINOPHEN 325 MG TABLET PO PRN (16:16)
[2020-09-08] MEDS: NOREPINEPHRINE 8 MG in SODIUM CHLORIDE 0.9% 242 ML IV PRN (16:55)
[2020-09-09] MEDS: MEROPENEM 1 GM in SODIUM CHLORIDE 0.9% 100 ML IV SCH ×3 (01:17→17:34)
[2020-09-09] MEDS: INSULIN LISPRO 100 UNITS/ML, PEN SQ-INSULIN SCH ×5 (03:35→21:29)
[2020-09-09 05:31] LABS: ANION GAP 5 mmol/L (5-15); BILIRUBIN,TOTAL 0.4 mg/dL (0.2-1.0); CALCIUM 7.9 mg/dL (8.5-10.1); CHLORIDE 111 mmol/L (98-107); CREATININE 0.97 mg/dL (0.7-1.3)
[2020-09-09 06:07] LABS: BASOPHILS % (AUTO) 1 % (0-1); EOSINOPHILS % (AUTO) 5 % (1-7); LYMPHOCYTES % (AUTO) 11 % (22-44); MEAN CORPUSCULAR HEMOGLOBIN 33.5 pg (27.5-34.5); MEAN CORPUSCULAR HGB CONC 34.4 g/dL (33.2-36.2); MEAN PLATELET VOLUME 10.3 fL (7.4-10.4); MONOCYTES % (AUTO) 7 % (2-9); NEUTROPHILS % (AUTO) 77 % (42-75); PLATELET COUNT 128 x10^3/uL (130-400); RED BLOOD COUNT 3.21 x10^6/uL (4.38-5.82); RED CELL DISTRIBUTION WIDTH 14.4 % (9.4-14.8)
[2020-09-09 06:08] LABS: MD NO
[2020-09-09] MEDS: INSULIN GLARGINE 100 UNITS/ML, PEN SQ-INSULIN SCH ×2 (09:00→21:28)
[2020-09-09] MEDS: RIVAROXABAN 15 MG TABLET PO SCH ×2 (09:24→17:34)
[2020-09-09] MEDS: GUAIFENESIN ER 600 MG TABLET PO SCH ×2 (09:24→21:26)
[2020-09-09] MEDS: SODIUM CHLORIDE FLUSH 10ML SYR IVF SCH ×2 (09:24→21:27)
[2020-09-09] MEDS: MULTIVITS,STRESS FORMULA 1 TABLET PO SCH (09:24)
[2020-09-09] MEDS: FUROSEMIDE 40 MG/4 ML IV SCH (09:24)
[2020-09-09] MEDS: TAMSULOSIN 0.4 MG CAP.ER.24H PO SCH (09:24)
[2020-09-09] MEDS: SENNA/DOCUSATE TABLET PO SCH (09:24)
[2020-09-09] MEDS: VANCOMYCIN 1,500 MG in SODIUM CHLORIDE 0.9% 250 ML IV SCH (11:53)
[2020-09-10] MEDS: MEROPENEM 1 GM in SODIUM CHLORIDE 0.9% 100 ML IV SCH ×3 (02:37→18:40)
[2020-09-10 03:13] LABS: ANION GAP 4 mmol/L (5-15); CALCIUM 7.9 mg/dL (8.5-10.1); CHLORIDE 110 mmol/L (98-107); TRIGLYCERIDES 122 mg/dL (50-200)
[2020-09-10 03:14] LABS: BILIRUBIN,TOTAL 0.5 mg/dL (0.2-1.0)
[2020-09-10 03:25] LABS: BASOPHILS % (AUTO) 1 % (0-1); EOSINOPHILS % (AUTO) 6 % (1-7); LYMPHOCYTES % (AUTO) 14 % (22-44); MEAN CORPUSCULAR HGB CONC 33.7 g/dL (33.2-36.2); MEAN PLATELET VOLUME 10.7 fL (7.4-10.4); MONOCYTES % (AUTO) 8 % (2-9); NEUTROPHILS % (AUTO) 72 % (42-75); PLATELET COUNT 139 x10^3/uL (130-400); RED BLOOD COUNT 3.18 x10^6/uL (4.38-5.82); RED CELL DISTRIBUTION WIDTH 14.7 % (9.4-14.8)
[2020-09-10 03:26] LABS: MD NO
[2020-09-10] MEDS: VANCOMYCIN 1,500 MG in SODIUM CHLORIDE 0.9% 250 ML IV SCH ×2 (04:32→22:54)
[2020-09-10] MEDS: INSULIN LISPRO 100 UNITS/ML, PEN SQ-INSULIN SCH ×4 (08:53→20:31)
[2020-09-10] MEDS ORDERED: INSULIN GLARGINE 100 UNITS/ML, PEN SQ-INSULIN SCH (09:00)
[2020-09-10] MEDS: SODIUM CHLORIDE FLUSH 10ML SYR IVF SCH ×2 (09:23→20:31)
[2020-09-10] MEDS: FUROSEMIDE 40 MG/4 ML IV SCH (09:23)
[2020-09-10] MEDS: RIVAROXABAN 15 MG TABLET PO SCH ×2 (09:23→16:39)
[2020-09-10] MEDS: MULTIVITS,STRESS FORMULA 1 TABLET PO SCH (09:23)
[2020-09-10] MEDS: GUAIFENESIN ER 600 MG TABLET PO SCH ×2 (09:23→20:30)
[2020-09-10] MEDS: TAMSULOSIN 0.4 MG CAP.ER.24H PO SCH (09:23)
[2020-09-10] MEDS: SENNA/DOCUSATE TABLET PO SCH (09:24)
[2020-09-10 12:24] VITALS: BP 108/74
[2020-09-10 18:29] VITALS: BP 121/79
[2020-09-10] MEDS: INSULIN GLARGINE 100 UNITS/ML, PEN SQ-INSULIN SCH (20:32)
[2020-09-11 01:53] VITALS: BP 111/71
[2020-09-11] MEDS: MEROPENEM 1 GM in SODIUM CHLORIDE 0.9% 100 ML IV SCH ×3 (03:03→18:27)
[2020-09-11 05:15] LABS: BASOPHILS % (AUTO) 1 % (0-1); EOSINOPHILS % (AUTO) 4 % (1-7); LYMPHOCYTES % (AUTO) 7 % (22-44); MEAN CORPUSCULAR HEMOGLOBIN 33.4 pg (27.5-34.5); MEAN PLATELET VOLUME 10.4 fL (7.4-10.4); MONOCYTES % (AUTO) 8 % (2-9); NEUTROPHILS % (AUTO) 80 % (42-75); PLATELET COUNT 145 x10^3/uL (130-400); RED BLOOD COUNT 3.29 x10^6/uL (4.38-5.82); RED CELL DISTRIBUTION WIDTH 14.9 % (9.4-14.8)
[2020-09-11 05:18] LABS: ANION GAP 5 mmol/L (5-15); CALCIUM 8.2 mg/dL (8.5-10.1); CHLORIDE 109 mmol/L (98-107); CREATININE 0.94 mg/dL (0.7-1.3)
[2020-09-11 05:36] LABS: MD NO
[2020-09-11] MEDS: INSULIN LISPRO 100 UNITS/ML, PEN SQ-INSULIN SCH ×4 (07:00→19:55)
[2020-09-11 07:19] VITALS: BP 111/74
[2020-09-11] MEDS: FUROSEMIDE 40 MG/4 ML IV SCH (07:50)
[2020-09-11] MEDS: GUAIFENESIN ER 600 MG TABLET PO SCH ×2 (07:51→19:55)
[2020-09-11] MEDS: SODIUM CHLORIDE FLUSH 10ML SYR IVF SCH ×2 (07:51→19:52)
[2020-09-11] MEDS: MULTIVITS,STRESS FORMULA 1 TABLET PO SCH (07:51)
[2020-09-11] MEDS: SENNA/DOCUSATE TABLET PO SCH ×2 (07:51→19:55)
[2020-09-11] MEDS: RIVAROXABAN 15 MG TABLET PO SCH ×2 (07:52→17:55)
[2020-09-11] MEDS: TAMSULOSIN 0.4 MG CAP.ER.24H PO SCH (07:52)
[2020-09-11] MEDS: INSULIN GLARGINE 100 UNITS/ML, PEN SQ-INSULIN SCH ×2 (07:55→19:56)
[2020-09-11] MEDS: POLYETHYLENE GLYCOL 17 GM PACKET PO SCH (09:30)
[2020-09-11 12:45] VITALS: BP 107/73
[2020-09-11] MEDS: VANCOMYCIN 1,600 MG in SODIUM CHLORIDE 0.9% 250 ML IV SCH (19:52)
[2020-09-11 20:22] VITALS: BP 120/75
[2020-09-12 01:50] VITALS: BP 113/70
[2020-09-12] MEDS: MEROPENEM 1 GM in SODIUM CHLORIDE 0.9% 100 ML IV SCH ×3 (03:04→19:38)
[2020-09-12 04:20] LABS: BASOPHILS % (AUTO) 2 % (0-1); EOSINOPHILS % (AUTO) 3 % (1-7); LYMPHOCYTES % (AUTO) 10 % (22-44); MEAN CORPUSCULAR HEMOGLOBIN 33.4 pg (27.5-34.5); MEAN CORPUSCULAR HGB CONC 34.4 g/dL (33.2-36.2); MEAN PLATELET VOLUME 10.6 fL (7.4-10.4); MONOCYTES % (AUTO) 11 % (2-9); NEUTROPHILS % (AUTO) 75 % (42-75); PLATELET COUNT 134 x10^3/uL (130-400); RED BLOOD COUNT 2.92 x10^6/uL (4.38-5.82); RED CELL DISTRIBUTION WIDTH 14.5 % (9.4-14.8)
[2020-09-12 04:23] LABS: ANION GAP 5 mmol/L (5-15); CALCIUM 7.9 mg/dL (8.5-10.1); CHLORIDE 110 mmol/L (98-107)
[2020-09-12 04:24] LABS: CREATININE 0.96 mg/dL (0.7-1.3)
[2020-09-12 04:30] LABS: MD NO
[2020-09-12] MEDS: INSULIN LISPRO 100 UNITS/ML, PEN SQ-INSULIN SCH ×4 (07:00→20:23)
[2020-09-12 07:27] VITALS: BP 146/77
[2020-09-12] MEDS: RIVAROXABAN 15 MG TABLET PO SCH ×2 (07:58→16:34)
[2020-09-12] MEDS: POLYETHYLENE GLYCOL 17 GM PACKET PO SCH (07:58)
[2020-09-12] MEDS: GUAIFENESIN ER 600 MG TABLET PO SCH ×2 (07:58→20:13)
[2020-09-12] MEDS: MULTIVITS,STRESS FORMULA 1 TABLET PO SCH (07:58)
[2020-09-12] MEDS: TAMSULOSIN 0.4 MG CAP.ER.24H PO SCH (07:58)
[2020-09-12] MEDS: FUROSEMIDE 40 MG/4 ML IV SCH (07:58)
[2020-09-12] MEDS: SODIUM CHLORIDE FLUSH 10ML SYR IVF SCH ×2 (08:00→20:14)
[2020-09-12] MEDS: INSULIN GLARGINE 100 UNITS/ML, PEN SQ-INSULIN SCH ×2 (09:00→20:39)
[2020-09-12] MEDS: SENNA/DOCUSATE TABLET PO SCH ×2 (09:00→20:13)
[2020-09-12] MEDS ORDERED: LORazepam 2 MG/ML, 1ML ONE (09:55)
[2020-09-12] MEDS ORDERED: LORazepam 2 MG/ML, 1ML IVPush ONE (10:00)
[2020-09-12] MEDS ORDERED: CODEINE SULFATE 30 MG TABLET PO PRN (12:00)
[2020-09-12] MEDS: VORICONAZOLE 200 MG TABLET PO SCH ×2 (12:03→22:54)
[2020-09-12] MEDS: DEXMEDETOMIDINE 400 MCG in SODIUM CHLORIDE 0.9% 96 ML IV PRN (12:04)
[2020-09-12] MEDS: VANCOMYCIN 1,600 MG in SODIUM CHLORIDE 0.9% 250 ML IV SCH (20:13)
[2020-09-13] MEDS: MEROPENEM 1 GM in SODIUM CHLORIDE 0.9% 100 ML IV SCH ×2 (02:47→10:49)
[2020-09-13] MEDS: DEXMEDETOMIDINE 400 MCG in SODIUM CHLORIDE 0.9% 96 ML IV PRN ×2 (03:28→14:38)
[2020-09-13 03:52] LABS: MEAN CORPUSCULAR HEMOGLOBIN 33.2 pg (27.5-34.5); MEAN CORPUSCULAR HGB CONC 34.1 g/dL (33.2-36.2); MEAN PLATELET VOLUME 10.3 fL (7.4-10.4); PLATELET COUNT 134 x10^3/uL (130-400); RED BLOOD COUNT 2.66 x10^6/uL (4.38-5.82); RED CELL DISTRIBUTION WIDTH 14.5 % (9.4-14.8)
[2020-09-13 04:00] LABS: ANION GAP 4 mmol/L (5-15); CHLORIDE 110 mmol/L (98-107); CREATININE 1.06 mg/dL (0.7-1.3)
[2020-09-13 04:59] LABS: MD YES
[2020-09-13] MEDS ORDERED: LORazepam 2 MG/ML, 1ML IVPush ONE (05:00)
[2020-09-13 05:04] LABS: BAND#(MANUAL) 0.05 x10^3/uL; BANDS%(MANUAL) 5 % (0-7); BASOS#(MANUAL) 0.03 x10^3/uL (0-0.1); BASOS% (MANUAL) 3 % (0-1); EOS#(MANUAL) 0.05 x10^3/uL (0.0-0.4); EOS% (MANUAL) 5 % (1-7); LYMPH#(MANUAL) 0.37 x10^3/uL (1-3.4); LYMPHS% (MANUAL) 37 % (22-44); METAMYELOCYTES# (MANUAL) 0.01 x10^3/uL (0-0); METAMYELOCYTES% (MANUAL) 1 % (0-1); MONOS#(MANUAL) 0.18 x10^3/uL (0.3-2.7); MONOS% (MANUAL) 18 % (2-9); SEG#(MANUAL) 0.31 x10^3/uL (1.8-6.8); SEGS% (MANUAL) 31 % (42-75)
[2020-09-13 05:06] LABS: <PLATELET ESTIMATE> ADEQUATE; <PLT MORPHOLOGY> NORMAL PLT MORPH; <RBC MORPHOLOGY> NORMAL
[2020-09-13] MEDS: INSULIN LISPRO 100 UNITS/ML, PEN SQ-INSULIN SCH ×2 (06:36→10:43)
[2020-09-13] MEDS ORDERED: TBO-FILGRASTIM 480 MCG/0.8 ML SQ ONE (06:53)
[2020-09-13] MEDS ORDERED: morphine SULFATE 10 MG/ML, 1ML IVPush ONE (08:00)
[2020-09-13] MEDS: RIVAROXABAN 15 MG TABLET PO SCH (08:12)
[2020-09-13] MEDS: FUROSEMIDE 40 MG/4 ML IV SCH (08:12)
[2020-09-13] MEDS: GUAIFENESIN ER 600 MG TABLET PO SCH (08:14)
[2020-09-13] MEDS: SODIUM CHLORIDE FLUSH 10ML SYR IVF SCH (08:14)
[2020-09-13] MEDS: TAMSULOSIN 0.4 MG CAP.ER.24H PO SCH (08:14)
[2020-09-13] MEDS: MULTIVITS,STRESS FORMULA 1 TABLET PO SCH (08:15)
[2020-09-13] MEDS: POLYETHYLENE GLYCOL 17 GM PACKET PO SCH (08:15)
[2020-09-13] MEDS: SENNA/DOCUSATE TABLET PO SCH (08:15)
[2020-09-13] MEDS: INSULIN GLARGINE 100 UNITS/ML, PEN SQ-INSULIN SCH (09:00)
[2020-09-13 09:43] LABS: MEAN CORPUSCULAR HEMOGLOBIN 32.8 pg (27.5-34.5); MEAN PLATELET VOLUME 10.3 fL (7.4-10.4); PLATELET COUNT 132 x10^3/uL (130-400); RED BLOOD COUNT 2.66 x10^6/uL (4.38-5.82); RED CELL DISTRIBUTION WIDTH 14.7 % (9.4-14.8)
[2020-09-13 09:51] LABS: MD YES
[2020-09-13 10:20] LABS: BANDS%(MANUAL) 8 % (0-7); BASOS#(MANUAL) 0.01 x10^3/uL (0-0.1); BASOS% (MANUAL) 1 % (0-1); EOS#(MANUAL) 0.03 x10^3/uL (0.0-0.4); EOS% (MANUAL) 2 % (1-7); LYMPH#(MANUAL) 0.35 x10^3/uL (1-3.4); LYMPHS% (MANUAL) 27 % (22-44); MONOS#(MANUAL) 0.23 x10^3/uL (0.3-2.7); MONOS% (MANUAL) 18 % (2-9); SEG#(MANUAL) 0.57 x10^3/uL (1.8-6.8); SEGS% (MANUAL) 44 % (42-75)
[2020-09-13 10:21] LABS: <PLATELET ESTIMATE> ADEQUATE; <PLT MORPHOLOGY> NORMAL PLT MORPH; <RBC MORPHOLOGY> NORMAL
[2020-09-13] MEDS ORDERED: SODIUM CHLORIDE 0.9% IV SCH (11:00)
[2020-09-13] MEDS ORDERED: VORICONAZOLE IV SCH (11:00)
[2020-09-13] MEDS ORDERED: LORazepam 2 MG/ML, 1ML ONE (13:35)
[2020-09-13] MEDS ORDERED: LORazepam 2 MG/ML, 1ML IVPush PRN ×2 (14:00→15:00)
[2020-09-13] MEDS ORDERED: MORPHINE SULFATE 4 MG/ML, 1ML ONE (14:56)
[2020-09-13] MEDS ORDERED: MORPHINE SULFATE 4 MG/ML, 1ML IVPush PRN (15:00)
[2020-09-13] MEDS ORDERED: ENOXAPARIN 80 MG/0.8 ML SQ SCH (20:00)
[2020-09-23] MEDS ORDERED: RIVAROXABAN 20 MG TABLET PO SCH (17:00)
== END 2020-09-13 20:25 | disposition expired | DRG 871 ==
LOC: EDBD 13:48 → ED 15:26 → EDIP 16:28 → 4EST 21:58 → CCU 08-26 05:19 → 4WST 08-27 20:15 → ICU 09-01 16:19 → 3N 09-10 10:48 → ICU 09-12 09:32
PROVIDERS: ADMIT Hospitalist; ATTEND Hospitalist
PROC: 0BH17EZ Insertion of Endotracheal Airway into Trachea, Via Natural or Artificial Opening (ICD-10-PCS; 2020-08-27)
PROC: 5A09357 Assistance with Respiratory Ventilation, Less than 24 Consecutive Hours, Continuous Positive Airway Pressure (ICD-10-PCS; 2020-08-27)
PROC: 5A0945A Assistance with Respiratory Ventilation, 24-96 Consecutive Hours, High Flow/Velocity Cannula (ICD-10-PCS; 2020-08-28)
PROC: 5A1945Z Respiratory Ventilation, 24-96 Consecutive Hours (ICD-10-PCS; 2020-09-05)
PROC: 02HV33Z Insertion of Infusion Device into Superior Vena Cava, Percutaneous Approach (ICD-10-PCS; principal; 2020-09-09)
PROC: B548ZZA Ultrasonography of Superior Vena Cava, Guidance (ICD-10-PCS; 2020-09-09)
DX: A41.89 Other specified sepsis (principal); U07.1 COVID-19; J12.89 Other viral pneumonia; J80 Acute respiratory distress syndrome; B49 Unspecified mycosis; D61.818 Other pancytopenia; D68.59 Other primary thrombophilia; E46 Unspecified protein-calorie malnutrition; E87.1 Hypo-osmolality and hyponatremia; E87.4 Mixed disorder of acid-base balance; N17.9 Acute kidney failure, unspecified; K92.1 Melena; I74.8 Embolism and thrombosis of other arteries; B44.9 Aspergillosis, unspecified; E11.21 Type 2 diabetes mellitus with diabetic nephropathy; E11.40 Type 2 diabetes mellitus with diabetic neuropathy, unspecified; E11.65 Type 2 diabetes mellitus with hyperglycemia; E78.5 Hyperlipidemia, unspecified; I10 Essential (primary) hypertension; I99.8 Other disorder of circulatory system; K59.00 Constipation, unspecified; K80.20 Calculus of gallbladder without cholecystitis without obstruction; N40.0 Benign prostatic hyperplasia without lower urinary tract symptoms; T38.0X5A Adverse effect of glucocorticoids and synthetic analogues, initial encounter; Z51.5 Encounter for palliative care; F41.9 Anxiety disorder, unspecified; R04.0 Epistaxis; R74.01 Elevation of levels of liver transaminase levels; R74.02 Elevation of levels of lactic acid dehydrogenase [LDH]; R79.82 Elevated C-reactive protein (CRP); Z79.4 Long term (current) use of insulin; Z87.891 Personal history of nicotine dependence; Y92.89 Other specified places as the place of occurrence of the external cause; Z79.899 Other long term (current) drug therapy
CPT/HCPCS: 36415; 36600; 74018; 84145; 87449; 96365; 96367; 99285; S0020; 36573; 71045; 71275; 80048; 80053; 80202; 82247; 82248; 82728; 82803; 82947; 82962; 83036; 83605; 83615; 83735; 84100; 84478; 85014; 85018; 85025; 85049; 85379; 85384; 85520; 85610; 85730; 86140; 87040; 87070; 87081; 87086; 87107; 87205; 87305; 93005; 93926; 94002; 94003; 94660; C1729; G0378; J0171; J0456; J0690; J0696; J1100; J1170; J1644; J1650; J1940; J2185; J2704; J2720; J3010; J3370; J3411; J3465; Q9967; C1751; C1757; J0330; J1447; J1815; J2060; J2270; J2440; J7050